=== PATIENT | female | born 1955 | race Caucasian/White ===

== ENCOUNTER 2018-04-26 10:38 | Outpatient (CLI) | payer OTHER | END 2018-04-26 10:49 | disposition home or self-care (01) | LOC: RX STUDY 10:38 | DX: R13.13 Dysphagia, pharyngeal phase (principal); K21.9 Gastro-esophageal reflux disease without esophagitis; R07.89 Other chest pain ==

== ENCOUNTER 2019-03-24 12:55 | Outpatient (CLI) | payer OTHER | END 2019-03-24 12:57 | disposition home or self-care (01) | LOC: RAD 12:55 | DX: R05 Cough (principal) ==

== ENCOUNTER 2019-04-13 15:43 | Outpatient (CLI) | payer OTHER | END 2019-04-13 16:00 | disposition home or self-care (01) | LOC: RAD 15:43 | DX: M54.5 Low back pain (principal); M25.561 Pain in right knee; M25.562 Pain in left knee ==

== ENCOUNTER 2019-04-20 11:22 | Outpatient (CLI) | payer OTHER | END 2019-04-20 12:00 | disposition home or self-care (01) | LOC: NUCLEAR 11:22 | DX: I87.2 Venous insufficiency (chronic) (peripheral) (principal) ==